=== PATIENT | male | born 1955 | race Caucasian/White ===

== ENCOUNTER 2021-01-25 09:18 | Inpatient (IN) | payer OTHER, SELFPAY ==
[2021-01-25] VITALS (27 sets, daily range): BP systolic 101–131; BP diastolic 58–97; PULSE 75–118; RESP 18–37; TEMP 37.2; O2SAT 90–100; BMI 29.1
--- NOTE | 2021-01-25 10:11 | ECG_ITS ---
[facility] Test Date: 2021-01-25 Pat Name: Lit Matamoros Department: Room: Gender: Male Executive Vp: : 1955 Requested By: Nahid Choudhury Order Number: [id number] Reading MD: PAPA YUEN Measurements Intervals [place] Rate: 89 P: ID: QRS: -58 QRSD: 91 T: 78 QT: 324 QTc: 394 Interpretive Statements ATRIAL FIBRILLATION WITH ABERRANT CONDUCTION OR VENTRICULAR PREMATURE COMPLEXES LEFT ANTERIOR FASCICULAR BLOCK [QRS AXIS <= -45, QR IN I, RS IN II] MODERATE ST DEPRESSION [0.05+ mV ST DEPRESSION] No previous ECG available for comparison Electronically Signed On 01-25-2021 23:34:40 CDT by PAPA YUEN [id number]
--- NOTE | 2021-01-25 10:11 | XR_ITS ---
WS: [id number] Portable AP upright chest, 01/25/2021 Clinical Data: dyspnea/cough Comparison: PA and lateral chest, 10/09/2007. Findings: There are moderate peripheral bilateral pulmonary opacities which can represent pneumonia. The heart is enlarged. The aortic arch shows calcification and tortuosity. No nodules, masses or effu sions are seen. Monitor leads are on the chest wall. XR/XR chest 1V portable [id number] Impression: 1. Moderate peripheral bilateral pulmonary opacities. 2. Cardiomegaly and atherosclerosis.
[2021-01-25 10:23] LABS: Basophils # 0.1 10^3/uL (0.0-0.1); Basophils % 0.7 %; Eosinophils % 0.1 %; Hematocrit 38.8 % (42.0-52.0); Lymphocytes # 1.3 10^3/uL (0.8-4.8); Lymphocytes % 8.9 %; Mean Corpuscular HGB Conc 30.9 g/dL (30.0-36.0); Mean Corpuscular Hemoglobin 32.7 pg (28.0-34.0); Mean Corpuscular Volume 105.7 fL (80-94); Mean Platelet Volume 10.3 fL (7.4-10.4); Monocytes # 1.7 10^3/uL (0.2-0.9); Monocytes % 11.9 %; Neutrophils # 10.57 10^3/uL (1.8-7.7); Neutrophils % 75.1 %; Nucleated Red Blood Cells % 0.1 %; Platelet Count 280 10^3/cmm (130-400); Red Blood Count 3.67 10^6/uL (4.1-5.3); Red Cell Distribution Width 15.7 % (12.1-15.1); White Blood Count 14.1 10^3/uL (4.0-10.0)
--- NOTE | 2021-01-25 10:24 | ED_ITS ---
HPI - SOB/Dyspnea General: Chief Complaint: Shortness of Breath/Dyspnea Stated Complaint: Sob, upset stomach, N, coughing Time Seen by Provider: 01/25/21 10:00 History of Present Illness: HPI Narrative: 55-year-old male presents emergency room complaining of increasing shortness of breath malaise and fatigue last several days. Patient has a history of congestive heart failure. MD elicited complaint: shortness of breath and cough Pertinent past history: congestive heart failure Onset (ago): day(s) Timing: constant Severity: severe Exacerbating factors: lying flat and exertion Relieving factors: oxygen and rest Known history of: congestive heart failure Associated symptoms: Reports chest congestion, cough and orthopnea; Deny abdominal pain, chest pain, diaphoresis, dizziness, extremity pain, fever(s), hemoptysis, lightheadedness, myalgias, nausea, palpitations, paresthesias, polydipsia, polyuria, rash, sense of impending doom, syncope or vomiting Treatment prior to arrival: diuretics Review of Systems Const: Denies: fever(s) or diaphoresis ENMT: Denies: throat pain, ear or mastoid pain, nasal discharge or nasal congestion Card: Reports: orthopnea; Denies: chest pain, palpitations, lightheadedness or syncope Resp: Reports: chest congestion; Denies: hemoptysis GI: Denies: abdominal pain, nausea or vomiting : Denies: flank pain, dysuria, urinary frequency or urinary urgency Musc: Denies: extremity pain Skin/Breast: Denies: rash or pruritus Neuro: Denies: dizziness Endo: Denies: polyuria or polydipsia PFS ED PFSH: Medical History (Updated 01/27/21 @ 10:15 by Nahid Hutton DO) Abdominal aortic aneurysm Essential (primary) hypertension Rheumatoid arthritis Family History Sister Cancer Father Diabetes Heart disease Social History Smoking and tobacco status: former smoker Alcohol intake: former Adopted: No Marital status: Number of children: 2 service: No History of recent travel: No Physical Exam Const: COMMON NORMALS: no acute distress GENERAL APPEARANCE: cooperative and comfortable ORIENTATION/CONSCIOUSNESS: Yes awake, Yes oriented to person, Yes oriented to place and Yes oriented to time HENMT: COMMON NORMALS: normocephalic, atraumatic and hearing grossly normal bilaterally HEAD & SCALP: normocephalic and atraumatic Resp: AUSCULTATION: crackles and rhonchi Cardio: RATE: tachycardic RHYTHM: abnormal rhythm irregularly irregular GI: COMMON NORMALS: Soft to palpation and No hepatosplenomegaly present AUSCULTATION: Yes normoactive bowel sounds PALPATION: Yes Soft to palpation, No Tenderness to palpation present (GI), No Guarding due to palpation present (GI) and Yes No hepatosplenomegaly present Extremity: COMMON NORMALS: normal to inspection, capillary refill normal, no clubbing, cyanosis or edema, no calf tenderness and no pedal edema Neuro: SENSORIUM/ORIENTATION: Yes oriented to person, Yes oriented to place and Yes oriented to time Skin: COMMON NORMALS: no rashes or lesions noted GENERAL SKIN EXAM: no rashes or lesions noted Course Vital Signs: Vital signs: Vital Signs Temperature 97.9 F 01/27/21 07:53 Pulse Rate 83 01/27/21 08:18 Respiratory Rate 16 01/27/21 08:18 Blood Pressure 115/85 01/27/21 07:53 Pulse Oximetry 95 01/27/21 08:18 MDM - SOB/Dyspnea MDM Narrative: Medical decision making narrative: Patient has bilateral pneumonias with decompensated heart failure A. fib which is in relatively good control at this point start on antibiotics discussed findings with the patient reviewed with hospitalist orders written Lab Data: Labs: Lab Results 01/25/21 01/25/21 01/25/21 Range/Units 10:08 10:08 10:08 WBC 14.1 H (4.0-10.0) 10^3/ uL RBC 3.67 L (4.1-5.3) 10^6/u L Hgb 12.0 (11.7-16.6) g/dL Hct 38.8 L (42.0-52.0) % MCV 105.7 H (80-94) fL MCH 32.7 (28.0-34.0) pg MCHC 30.9 (30.0-36.0) g/dL RDW 15.7 H (12.1-15.1) % Plt Count 280 (130-400) 10^3/c mm MPV 10.3 (7.4-10.4) fL Neut % (Auto) 75.1 % Lymph % (Auto) 8.9 % Mellette % (Auto) 11.9 % Eos % (Auto) 0.1 % Baso % (Auto) 0.7 % Neut # (Auto) 10.57 H (1.8-7.7) 10^3/u L Lymph # (Auto) 1.3 (0.8-4.8) 10^3/u L Mellette # (Auto) 1.7 H (0.2-0.9) 10^3/u L Eos # (Auto) 0.0 (0.0-0.8) 10^3/u L Baso # (Auto) 0.1 (0.0-0.1) 10^3/u L Nucleated RBC % (a uto) 0.1 % Nucleated RBCs # 0.0 /100WBC Sodium 140 (136-145) mmol/L Potassium 3.9 (3.5-5.1) mmol/L Chloride 100 (98-107) mmol/L Carbon Dioxide 27 (22-29) mmol/L Anion Gap 16.9 (5-19) BUN 25 H (8-23) mg/dL Creatinine 1.3 H (0.7-1.2) mg/dL GFR Calculation 55.8 L (90-130) mL/min Glucose 102 (65-115) mg/dL Calculated Osmolal ity 295 (285-295) mOsm/k g Lactic Acid 1.6 (0.5-2.2) mmol/L Calcium 9.2 (8.5-10.5) mg/dL Total Bilirubin 0.6 (0.15-1.2) mg/dL AST 11 (0-40) U/L ALT 13 (0-41) U/L Alkaline Phosphata se 88 (40-130) IU/L Creatine Kinase 39 (39-308) U/L Troponin T Baselin e (0-15) ng/L Troponin T 120 Min jp (0-15) ng/L Delta Troponin T (0-10) ABS# NT-Pro-B Natriuret Pep 3309 H (0-125) pg/mL Total Protein 6.5 L (6.6-8.7) g/dL Albumin 4.0 (3.5-5.2) g/dL Globulin 2.5 (1.3-4.6) g/dL Urine Color (Yellow) Urine Appearance (CLEAR) Urine pH (5-7) Ur Specific Gravit y (1.005-1.030) Urine Protein (Negative) Urine Glucose (UA) (Normal) Urine Ketones (Negative) Urine Blood (Negative) Urine Nitrate (Negative) Urine Bilirubin (Negative) Urine Urobilinogen (Negative) mg/dL Ur Leukocyte Tiki ase (Negative) Nasal/Oral COVID-1 9 PCR SARS-CoV-2 Ag (Rap id) (Negative) 01/25/21 01/25/21 01/25/21 Range/Units 10:08 11:08 11:20 WBC (4.0-10.0) 10^3/ uL RBC (4.1-5.3) 10^6/u L Hgb (11.7-16.6) g/dL Hct (42.0-52.0) % MCV (80-94) fL MCH (28.0-34.0) pg MCHC (30.0-36.0) g/dL RDW (12.1-15.1) % Plt Count (130-400) 10^3/c mm MPV (7.4-10.4) fL Neut % (Auto) % Lymph % (Auto) % Mellette % (Auto) % Eos % (Auto) % Baso % (Auto) % Neut # (Auto) (1.8-7.7) 10^3/u L Lymph # (Auto) (0.8-4.8) 10^3/u L Mellette # (Auto) (0.2-0.9) 10^3/u L Eos # (Auto) (0.0-0.8) 10^3/u L Baso # (Auto) (0.0-0.1) 10^3/u L Nucleated RBC % (a uto) % Nucleated RBCs # /100WBC Sodium (136-145) mmol/L Potassium (3.5-5.1) mmol/L Chloride (98-107) mmol/L Carbon Dioxide (22-29) mmol/L Anion Gap (5-19) BUN (8-23) mg/dL Creatinine (0.7-1.2) mg/dL GFR Calculation (90-130) mL/min Glucose (65-115) mg/dL Calculated Osmolal ity (285-295) mOsm/k g Lactic Acid (0.5-2.2) mmol/L Calcium (8.5-10.5) mg/dL Total Bilirubin (0.15-1.2) mg/dL AST (0-40) U/L ALT (0-41) U/L Alkaline Phosphata se (40-130) IU/L Creatine Kinase (39-308) U/L Troponin T Baselin e 74 H (0-15) ng/L Troponin T 120 Min jp (0-15) ng/L Delta Troponin T (0-10) ABS# NT-Pro-B Natriuret Pep (0-125) pg/mL Total Protein (6.6-8.7) g/dL Albumin (3.5-5.2) g/dL Globulin (1.3-4.6) g/dL Urine Color Straw (Yellow) Urine Appearance Clear (CLEAR) Urine pH 5 (5-7) Ur Specific Gravit y 1.010 (1.005-1.030) Urine Protein Neg (Negative) Urine Glucose (UA) Norm (Normal) Urine Ketones Negative (Negative) Urine Blood Neg (Negative) Urine Nitrate Negative (Negative) Urine Bilirubin Neg (Negative) Urine Urobilinogen Norm (Negative) mg/dL Ur Leukocyte Tiki ase Negative (Negative) Nasal/Oral COVID-1 9 PCR Not detected SARS-CoV-2 Ag (Rap id) (Negative) 01/25/21 01/25/21 Range/Units 11:20 12:33 WBC (4.0-10.0) 10^3/ uL RBC (4.1-5.3) 10^6/u L Hgb (11.7-16.6) g/dL Hct (42.0-52.0) % MCV (80-94) fL MCH (28.0-34.0) pg MCHC (30.0-36.0) g/dL RDW (12.1-15.1) % Plt Count (130-400) 10^3/c mm MPV (7.4-10.4) fL Neut % (Auto) % Lymph % (Auto) % Mellette % (Auto) % Eos % (Auto) % Baso % (Auto) % Neut # (Auto) (1.8-7.7) 10^3/u L Lymph # (Auto) (0.8-4.8) 10^3/u L Mellette # (Auto) (0.2-0.9) 10^3/u L Eos # (Auto) (0.0-0.8) 10^3/u L Baso # (Auto) (0.0-0.1) 10^3/u L Nucleated RBC % (a uto) % Nucleated RBCs # /100WBC Sodium (136-145) mmol/L Potassium (3.5-5.1) mmol/L Chloride (98-107) mmol/L Carbon Dioxide (22-29) mmol/L Anion Gap (5-19) BUN (8-23) mg/dL Creatinine (0.7-1.2) mg/dL GFR Calculation (90-130) mL/min Glucose (65-115) mg/dL Calculated Osmolal ity (285-295) mOsm/k g Lactic Acid (0.5-2.2) mmol/L Calcium (8.5-10.5) mg/dL Total Bilirubin (0.15-1.2) mg/dL AST (0-40) U/L ALT (0-41) U/L Alkaline Phosphata se (40-130) IU/L Creatine Kinase (39-308) U/L Troponin T Baselin e (0-15) ng/L Troponin T 120 Min jp 70.31 H (0-15) ng/L Delta Troponin T -3.69 L (0-10) ABS# NT-Pro-B Natriuret Pep (0-125) pg/mL Total Protein (6.6-8.7) g/dL Albumin (3.5-5.2) g/dL Globulin (1.3-4.6) g/dL Urine Color (Yellow) Urine Appearance (CLEAR) Urine pH (5-7) Ur Specific Gravit y (1.005-1.030) Urine Protein (Negative) Urine Glucose (UA) (Normal) Urine Ketones (Negative) Urine Blood (Negative) Urine Nitrate (Negative) Urine Bilirubin (Negative) Urine Urobilinogen (Negative) mg/dL Ur Leukocyte Tiki ase (Negative) Nasal/Oral COVID-1 9 PCR SARS-CoV-2 Ag (Rap id) Negative (Negative) Discharge Plan Discharge Patient Disposition: Admitted As Inpatient Admit Provider: Reid Cline Clinical Impression: Pneumonia, Decompensated heart failure, Atrial fibrillation, Essential hypertension, Acute kidney injury superimposed on CKD, Abdominal aortic aneurysm Condition: Stable Coding Level of Care Code ED Program Scheduler for Chg Fwd Exam Comprehensive
[2021-01-25 10:33] LABS: Lactic Sepsis W/Reflex 1.6 mmol/L (0.5-2.2)
[2021-01-25 10:44] LABS: Troponin(5th) Baseline 74 ng/L (0-15)
[2021-01-25 10:48] LABS: Alanine Aminotransferase 13 U/L (0-41); Alkaline Phosphatase 88 IU/L (40-130); Anion Gap 16.9 (5-19); Aspartate Amino Transferase 11 U/L (0-40); Blood Urea Nitrogen 25 mg/dL (8-23); Calcium 9.2 mg/dL (8.5-10.5); Carbon Dioxide 27 mmol/L (22-29); Chloride 100 mmol/L (98-107); Creatine Phosphokinase 39 U/L (39-308); Globulin 2.5 g/dL (1.3-4.6); Glomerular Filtration Rate 55.8 mL/min (90-130); Glucose 102 mg/dL (65-115); NT Pro B Type Natriuretic Pept 3309 pg/mL (0-125); Osmolality Calculated 295 mOsm/kg (285-295); Potassium 3.9 mmol/L (3.5-5.1); Sodium 140 mmol/L (136-145); Total Bilirubin 0.6 mg/dL (0.15-1.2); Total Protein 6.5 g/dL (6.6-8.7)
[2021-01-25 11:17] LABS: Add Urine Microscopic? NO; Charge for UA Resulting for Rev
[2021-01-25 11:21] LABS: Bilirubin Urine Neg (Negative); Blood Urine Neg (Negative); Glucose Urine UA Norm (Normal); Ketones Urine Negative (Negative); Leukocyte Esterase Urine Negative (Negative); Nitrate Urine Negative (Negative); Protein Urine Neg (Negative); Urine Appearance Clear (CLEAR); Urine Color Straw (Yellow); Urobilinogen Urine Norm (Negative); pH Urine 5 (5-7)
--- NOTE | 2021-01-25 12:00 | CT_ITS ---
WS: [id number] CT ABDOMEN PELVIS TECHNIQUE: Contrast-enhanced CT of the abdomen and pelvis with coronal and sagittal reformatted image s. CLINICAL INFORMATION: abd pain COMPARISON: None. DLP: 1657.[address] scans at [facility] use at least one of these dose optimization techniques: automat ed exposure control; mA and/or kV adjustment per patient size (includes targeted exams where dose is matched to clinical indication); or iterative reconstruction. FINDINGS: Infrarenal abdominal aortic aneurysm measuring 5.2 x 6.3 x 7.1 cm with surrounding mural thrombus. To rtuous infrarenal abdominal aorta. Moderate calcification. Mild diffuse fatty infiltration liver. Tiny hepatic cyst. Patchy infiltrates in the lung bases. Chron ic right lower rib fractures. Fatty atrophy of the pancreas. Normal spleen. Normal GE junction. Air-f luid level in the stomach. Adrenal glands are normal. No hydronephrosis. Bilateral renal cortical atr ophy. Tiny 6 mm low-attenuation lesion in the upper pole right kidney likely renal cyst but too small for definitive characterization. Normal portal vein and splenic vein. Argueta catheter. Left inguinal hernia containing a loop of sigmoid colon. No evidence of obstruction. No evidence of high-grade small or large bowel obstruction. Incidental fat-containing umbilical herni a. No free fluid in the pelvis. Moderate spondylitic changes lumbar spine. Chronic appearing compress ion superior endplate T12. CT/CT abdomen pelvis w con* [id number] IMPRESSION: 1. Infrarenal abdominal aortic aneurysm measuring 5.2 x 6.3 x 7.1 cm with surr ounding mural thrombus. Tortuous infrarenal abdominal aorta. 2. Left inguinal hernia containing a loop of sigmoid colon. No evidence of str angulation or ischemia. 3. No evidence of small or large bowel obstruction. 4. Diffuse fatty infiltration liver. 5. Patchy infiltrates in the lung bases. Recommend correlation for COVID 19 pn eumonia. 6. Argueta catheter. Notified Nahid Hutton DO at 01/25/2021 1:39 PM.
[2021-01-25 12:09] LABS: SARS Covid-2 Antigen Negative (Negative)
[2021-01-25] MEDS: FUROsemide 10 mg/mL SDV 10mL 60 MG IVP (12:10)
--- NOTE | 2021-01-25 12:11 | ECG_ITS ---
[facility] ED Test Date: 2021-01-25 Pat Name: Lit Matamoros Department: Room: Gender: Male Flat Ironer: : 1955 Requested By: Nahid Choudhury Order Number: [id number] Juliette MD: Marion Mathews M.D. Measurements Intervals [place] Rate: 101 P: LA: QRS: 241 QRSD: 105 T: 115 QT: 337 QTc: 439 Interpretive Statements ATRIAL FIBRILLATION WITH RAPID VENTRICULAR RESPONSE WITH ABERRANT CONDUCTION OR VENTRICULAR PREMATURE COMPLEXES INCOMPLETE RIGHT BUNDLE BRANCH BLOCK RIGHT VENTRICULAR HYPERTROPHY MODERATE ST DEPRESSION Compared to ECG 01/25/2021 10:00:44 Incomplete right bundle-branch block now present Atrial abnormality now present Right ventricular hypertrophy now present Left anterior fascicular block no longer present ST (T wave) deviation still present Electronically Signed On 01-28-2021 12:41:30 CDT by Marion Mathews M.D. [id number]
[2021-01-25 12:58] LABS: Troponin 5 2HR 70.31 ng/L (0-15); Troponin 5 2HR Delta -3.69 ABS# (0-10)
[2021-01-25] MEDS: iodixanol 320 mg/mL 100mL Btl IV (13:25)
--- NOTE | 2021-01-25 14:56 | PM.HP ---
Providers/Chief Complaint Primary Care Provider: Andrew Webster MD Chief Complaint: Sob, upset stomach, N, coughing History of Present Illness Lit Matamoros is a 65 year old male with past medical history of hypertension , rheumatoid arthritis, came in with chief complaint of worsening shortness of breath as well as cough, he is experiencing worsening shortness of breath for the last couple of months, but in the last 3 days shortness of breath has been worst, along with shortness of breath he is also complaining of none productive cough, shortness of breath is worse with minimal exertion, denies any PND and orthopnea, denies any chest pain, fever, sick contact, abdominal pain , nausea , vomiting. Upon arrival in the ER he was worked up for above mentioned complaint. Imaging studies: XR chest : Moderate peripheral bilateral pulmonary opacities. CT abdomen and pelvis: EKG: A. fib, with rate of 100 Pertinent labs: WBC:14.1, H&H:12/38.8, platelet count:280, serum sodium:140, serum potassium:3.9, BUN / serum creatinine: 25/1.3 Troponin T baseline: 74, 2-hour troponin T: 70.31, 2-hour delta:-3.69, proBNP:3309 Urinalysis: Clean Rapid Covid antigen negative, Covid PCR pending: Review of Systems Resp: Denies: pain on inspiration GI: Denies: abdominal pain, nausea, vomiting, diarrhea or constipation : Denies: flank pain or difficulty urinating Musc: Denies: back pain or extremity pain Neuro: Denies: headache(s), difficulty walking or confusion Medications/Allergies Home Medications Medication Instructions Recorded Confirmed Last Taken Type aspirin 81 mg chewable tablet 81 mg PO DAILY 01/11/21 01/25/21 01/24/21 History bumetanide 1 mg tablet 1 mg PO DAILY #90 tab 01/11/21 01/25/21 01/25/21 Rx carvedilol 25 mg tablet 25 mg PO BID #180 tab 01/11/21 01/25/21 01/25/21 Rx fluticasone fur. 100 mcg-umeclid 1 inh INHALATION DAILY 01/11/21 01/25/21 01/24/21 History 62.5 mcg-vilant 25 mcg inhalat.powder losartan 50 mg tablet 50 mg PO DAILY 01/11/21 01/25/2101/25/21 History prednisone 5 mg tablet 5 mg PO BID 01/11/21 01/25/21 01/25/21 History spironolactone 100 mg tablet 100 mg PO DAILY #90 tab 01/11/21 01/25/21 01/25/21 Rx oxycodone-acetaminophen 1 tab PO Q4H PRN 01/25/21 01/25/21 01/25/21 History Allergies Allergy/AdvReac Type Severity Reaction Status Date / Time etanercept [From Enbrel] Allergy Severe flu Verified 01/11/21 15:42 symptoms hydralazine Allergy Severe muscle pain Verified 01/11/21 15:39 hydrochlorothiazide Allergy Severe dried him Verified 01/11/21 15:38 out lisinopril Allergy Severe leg pain Verified 01/11/21 15:41 simvastatin Allergy Severe muscle pain Verified 01/11/21 15:39 sulfasalazine Allergy Severe rash Verified 01/11/21 15:40 [From Sulfazine] PFSH Acute PFSH: Medical History (Updated 01/25/21 @ 15:06 by Reid Cline MD) Abdominal aortic aneurysm Essential (primary) hypertension Rheumatoid arthritis Family History Sister Cancer Father Diabetes Heart disease Social History Smoking and tobacco status: former smoker Alcohol intake: former Adopted: No Marital status: Number of children: 2 service: No History of recent travel: No Vitals/I&O/Wt Last Vital Signs Temp 98.9 F 01/25/21 09:55 Pulse 118 H 01/25/21 13:45 Resp 18 01/25/21 13:45 BP 107/86 01/25/21 13:45 Pulse Ox 95 01/25/21 13:45 Weight last 48 hrs Weight 97.522 kg Physical Exam Const: COMMON NORMALS: patient oriented x3 HENMT: COMMON NORMALS: normocephalic and atraumatic HEAD & SCALP: normocephalic and atraumatic Chest: CHEST: Yes Symmetrical chest wall rise Resp: OTHER: Decreased air entry bilaterally,Bilateral basal crypts Cardio: COMMON NORMALS: regular rate, regular rhythm, S1 normal heart sound present, S2 normal heart sound present, No gallops present (Cardio), No murmurs present (Cardio), No rub (Cardio) and Peripheral pulses 2+ throughout RATE: regular rate RHYTHM: regular rhythm HEART SOUNDS: S1 normal heart sound present and S2 normal heart sound present PERIPHERAL PULSES: Peripheral pulses 2+ throughout GI: COMMON NORMALS: Normal to inspection, nondistended, normoactive bowel sounds present, Soft to palpation, non-tender, No hepatosplenomegaly present and no masses AUSCULTATION: Yes normoactive bowel sounds PALPATION: Yes Soft to palpation and Yes No hepatosplenomegaly present RECTAL EXAM: Yes deferred Extremity: NARRATIVE EXTREMITY EXAM: 1+ bilateral pitting edema present in both lower extremity Neuro: COMMON NORMALS: patient oriented x3 Urinary Catheter Management^: Argueta: Cath Placed During This Visit: yes Urinary Catheter Date of Insertion: 01/25/21 Urinary Catheter Time of Insertion: 12:10 Data : 01/25/21 10:08 01/25/21 10:08 A&P Assessment and plan (1) Decompensated heart failure: Decompensated heart failure: 2D echo: Intake output charting Daily weight k>4, magnesium greater than 2 Bumex 1 mg IV daily Cardiology consult Status: Acute (2) Pneumonia: Patient is complaining of worsening shortness of breath, cough, x-ray chest is showing bilateral infiltrates. Follow blood culture Procalcitonin Urine Legionella antigen Bacterial antigen panel Covid PCR Continue ceftriaxone and azithromycin Status: Acute (3) Atrial fibrillation: New onset A. fib [id number] of 2 TSH Carvedilol 12.5 mg every 12 daily Eliquis 5 mg every 12 daily Status: Acute (4) Acute kidney injury superimposed on CKD: SHANTELLE on CKD stage III: Likely secondary to cardiorenal syndrome: In the presence of decompensated heart failure Monitor BMP Intake output charting Avoid nephrotoxic's Status: Acute (5) Leukocytosis: Likely secondary to steroid use for RA Follow blood culture Follow-up procalcitonin Antibiotics as above Status: Acute (6) Abdominal aortic aneurysm: 6.6 centimeters non leaking abdominal aneurysm. Outpatient CTVS follow-up Status: Acute (7) Essential hypertension: Currently blood pressure is well controlled Status: Acute (8) Rheumatoid arthritis: Status: Acute Additional A&P Information CODE STATUS: Full code DVT prophylaxis: On Lovenox Attestations Medical Necessity Statement*: patient needs to be in hospital for the management of pneumonia, heart failure, atrial fibrillation. Anticipated length of stay greater than 2 midnights Coding Level of Care Code Acute Surgical Services Tech for g Fwd Diagnoses Decompensated heart failure I50.9 Pneumonia J18.9 Atrial fibrillation I48.91 Acute kidney injury superimposed on CKD N17.9; N18.9 Leukocytosis D72.829 Abdominal aortic aneurysm I71.4 Essential hypertension I10 Rheumatoid arthritis M06.9
[2021-01-25] MEDS: enoxaparin 40 mg/0.4 mL Syringe SUBCUT (15:13)
[2021-01-25] MEDS: cefTRIAXone 1,000 MG in sodium chloride 0.9% (plus) 50 ML 100 MG IV (15:13)
[2021-01-25] MEDS: azithromycin 500 MG in sodium chloride 0.9% 250 ML 250 MG IV (15:39)
--- NOTE | 2021-01-25 16:11 | ECG_ITS ---
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: : 1955 Requested By: Nahid Choudhury Order Number: [id number] Reading MD: PAPA YUEN Measurements Intervals [place] Rate: 90 P: 151 PA: 169 QRS: 236 QRSD: 92 T: 126 QT: 351 QTc: 431 Interpretive Statements SINUS RHYTHM WITH FREQUENT SUPRAVENTRICULAR PREMATURE COMPLEXES ARM LEADS REVERSED [INVERTED P AND QRS IN I] ABNORMAL RHYTHM ECG Compared to ECG 01/25/2021 13:52:09 Atrial fibrillation no longer present Ventricular premature complex(es) no longer present Aberrant conduction of supraventricular beat(s) no longer present Incomplete right bundle-branch block no longer present Atrial abnormality no longer present Right ventricular hypertrophy no longer present ST (T wave) deviation no longer present Electronically Signed On 01-25-2021 23:36:43 CDT by PAPA YUEN [id number]
[2021-01-25 16:32] LABS: Troponin 5 6HR 68.41 ng/L (0-15)
[2021-01-25 16:48] LABS: Troponin 5 6HR Delta -5.59 ng/L (0-12)
[2021-01-25] MEDS: carvedilol 25 mg Tablet 12.5 MG PO (19:38)
[2021-01-25] MEDS: apixaban 5 mg Tablet PO (19:39)
--- NOTE | 2021-01-25 20:28 | PC.NURSE ---
Addendum entered by Breanna Sapp RN 01/25/21 20:29: A-Fib with PVCs on monitor, matching most recent EKG. Original Note: Patient states that he still feels short of breath, but that he feels much better than he did earlier. Oxygen saturation 98 percent on 2 L NC. Heart rate A-fib 90s. Patient is alert and oriented. Will monitor.
--- NOTE | 2021-01-25 21:35 | PC.NURSE ---
Patient RR 26-27. Patient states he feels short of breath. Oxygen saturation 98 percent on [address] Holden notified. 2 mg Morphine ordered x1 for air hunger.
[2021-01-25] MEDS: morphine 4 mg/mL SDV 1 mL 2 MG IVP (21:53)
--- NOTE | 2021-01-25 22:06 | PC.NURSE ---
Patient states okay to give any information to , Linda.
--- NOTE | 2021-01-25 22:08 | PC.NURSE ---
Dr. Holden notified of patient stating that he does not feel that the Morphine helped. Patient is still c/o shortness of breaht. Oxygen saturation still 98 percent on 2 L NC, however respiratory rate in the 30s. Ordered Bipap. RT notified.
[2021-01-26] VITALS (16 sets, daily range): BP systolic 107–125; BP diastolic 79–93; PULSE 71–106; RESP 16–31; TEMP 36.6–37.1; O2SAT 91–97
--- NOTE | 2021-01-26 00:49 | PC.NURSE ---
Dr. Holden notified of patient still stating that he feels short of breath. Patient states that he feels the Bipap helped a little bit. 2 mg Morphine x1 ordered.
[2021-01-26] MEDS: morphine 4 mg/mL SDV 1 mL 2 MG IVP (00:53)
--- NOTE | 2021-01-26 01:30 | PC.NURSE ---
Patient is currently resting with eyes closed. Bipap is on. Will monitor.
[2021-01-26 04:26] LABS: Basophils # 0.1 10^3/uL (0.0-0.1); Basophils % 0.7 %; Eosinophils % 0.4 %; Hematocrit 35.5 % (42.0-52.0); Hemoglobin 10.8 g/dL (11.7-16.6); Lymphocytes # 1.4 10^3/uL (0.8-4.8); Lymphocytes % 12.7 %; Mean Corpuscular HGB Conc 30.4 g/dL (30.0-36.0); Mean Corpuscular Hemoglobin 32.1 pg (28.0-34.0); Mean Corpuscular Volume 105.7 fL (80-94); Mean Platelet Volume 10.7 fL (7.4-10.4); Monocytes # 1.5 10^3/uL (0.2-0.9); Monocytes % 14.4 %; Neutrophils # 7.19 10^3/uL (1.8-7.7); Neutrophils % 67.9 %; Nucleated Red Blood Cells % 0 %; Platelet Count 244 10^3/cmm (130-400); Red Blood Count 3.36 10^6/uL (4.1-5.3); Red Cell Distribution Width 15.8 % (12.1-15.1); White Blood Count 10.6 10^3/uL (4.0-10.0)
[2021-01-26 04:46] LABS: Magnesium 1.7 mg/dL (1.7-2.3); Phosphorus 3.7 mg/dL (2.5-4.5)
[2021-01-26 04:52] LABS: Estmated Average Glucose 108; Hemoglobin A1C 5.4 % (4.0-6.0)
[2021-01-26 05:07] LABS: NT Pro B Type Natriuretic Pept 1765 pg/mL (0-125); Thyroid Stimulating Hormone 1.06 uIU/mL (0.27-4.20)
--- NOTE | 2021-01-26 05:16 | PC.NURSE ---
Earlier patient had got up to bedside commode with one assist and did not have a bowel movement. Patient had incontinent episode of loose stool. Patient's heart rate went up to 144 A-fib with RVR. This only lasted a few seconds. By the time nurse got into the room, heart rate was back in the 90s A-fib and patient stated that he felt fine. Patient states that his shortness of breath feels better this morning. Oxygen saturation currently 90s on Bipap. Patient is alert and oriented x4. RR 22. Will monitor.
[2021-01-26 05:19] LABS: Alanine Aminotransferase 9 U/L (0-41); Albumin Level 3.4 g/dL (3.5-5.2); Alkaline Phosphatase 68 IU/L (40-130); Anion Gap 19.2 (5-19); Aspartate Amino Transferase 11 U/L (0-40); Blood Urea Nitrogen 28 mg/dL (8-23); Calcium 8.6 mg/dL (8.5-10.5); Carbon Dioxide 24 mmol/L (22-29); Chloride 100 mmol/L (98-107); Globulin 2.7 g/dL (1.3-4.6); Glomerular Filtration Rate 55.8 mL/min (90-130); Glucose 83 mg/dL (65-115); Osmolality Calculated 295 mOsm/kg (285-295); Potassium 3.2 mmol/L (3.5-5.1); Sodium 140 mmol/L (136-145); Total Bilirubin 0.7 mg/dL (0.15-1.2); Total Protein 6.1 g/dL (6.6-8.7)
[2021-01-26] MEDS: HYDROcodone-acetaminophen 5-325 mg Tablet 1 TAB PO ×2 (05:52→19:08)
--- NOTE | 2021-01-26 05:57 | PC.NURSE ---
Patient was assisted to bedside commode with one assist. Patient did not have a bowel movement. Patient was assisted back to bed with one assist. Patient tolerated well.
[2021-01-26 06:20] LABS: D Dimer 1.91 ug/mIFEU (0-0.59)
[2021-01-26] MEDS: cefTRIAXone 1,000 MG in sodium chloride 0.9% (plus) 50 ML 100 MG IV (08:57)
[2021-01-26] MEDS: aspirin 81 mg Chew Tablet PO (08:58)
[2021-01-26] MEDS: bumetanide 0.25 mg/mL SDV 4 mL 1 MG IV (08:58)
[2021-01-26] MEDS: carvedilol 25 mg Tablet 12.5 MG PO (08:58)
[2021-01-26] MEDS: potassium chloride oral liq 20 mEq/15 mL UDC PO (08:59)
[2021-01-26] MEDS: apixaban 5 mg Tablet PO ×2 (09:02→18:15)
--- NOTE | 2021-01-26 09:16 | USCV_ITS ---
Lit Matamoros Age: 65 Gender: M : 1955 Exam Date: 01/26/2021 16:30 Ordering Phys: Reid Cline MD Technologist: Helen Jackson [place] [facility] [place]: SOB, CHF BP: 107 / 89 HR: 103 Rhythm: Sinus Technical Quality: Technically difficult study MEASUREMENTS (Male / Female) Normal Values 2D ECHO LV Diastolic Diameter PLAX 5.3 cm 4.2 - 5.9 / 3.9 - 5.3 cm LV Systolic Diameter PLAX 2.8 cm IVS Diastolic Thickness 0.9 cm 0.6 - 1.0 / 0.6 - 0.9 cm IVS Systolic Thickness 2.5 cm LVPW Diastolic Thickness 1.1 cm 0.6 - 1.0 / 0.6 - 0.9 cm LVPW Systolic Thickness 1.3 cm LVOT Diameter 2.1 cm LV Ejection Fraction 2D Teich 78.8 % LV Ejection Fraction MOD 2C 69.7 % LV Ejection Fraction 2C AL 72.4 % LA Diameter 3.8 cm LA Width 4.1 cm LA Height 5.9 cm RA Width 3.5 cm RA Height 5.4 cm Aorta at Sinotubular Diameter 3.7 cm DOPPLER AV Peak Velocity 181.0 cm/s LVOT Peak Velocity 191.0 cm/s AV Area Cont Eq vti 4.7 cm squared AV Area Cont Eq pk 3.8 cm squared MV Peak Velocity 86.0 cm/s MV Area PHT 3.2 cm squared Mitral E to A Ratio 1.2 MV E' Velocity 88.0 cm/s TR Peak Velocity 280.0 cm/s TR Peak Gradient 31.4 mmHg Right Atrial Pressure 8.0 mmHg Pulmonary Artery Systolic Pressu 39.4 mmHg PV Peak Velocity 80.0 cm/s RV Acceleration Time 0.1 s RV Ejection Time 0.3 s RV AcT/ET 0.5 FINDINGS Left Ventricle Normal left ventricular cavity size. Normal left ventricular systolic function. Left ventricular ejection fraction is estimated at 55 -60 %. Although no diagnostic regional wall motion abnormality could be in fact, this possibility cannot be completely excluded based on the study. Diastolic function was not assessed. Right Ventricle Normal right ventricular size and systolic function. Right Atrium Normal right atrial size. Right atrial pressure estimated at 8 mmHg. Left Atrium Mildly increased left atrial size. Mitral Valve Structurally normal mitral valve. No mitral valve stenosis. No significant mitral valve regurgitation. Aortic Valve Aortic valve not well visualized. No aortic valve stenosis. No aortic valve regurgitation. Tricuspid Valve Structurally normal tricuspid valve. Trace tricuspid valve regurgitation. Pulmonic Valve Pulmonic valve not well visualized. Pericardium No pericardial effusion. Aorta Normal size aortic root and proximal ascending aorta. Dilated inferior vena cava with normal respiratory variation. CONCLUSIONS 1. This is a technically difficult study with poor windows. 2. Normal left ventricular cavity size. Normal left ventricular systolic function. Left ventricular ejection fraction is estimated at 55 -60 %. Although no diagnostic regional wall motion abnormality could be in fact, this possibility cannot be completely excluded based on the study. 3. No prior similar studies to compare. Marion Mathews MD (Electronically Signed) Final Date: 27 January 2021 10:08 S
--- NOTE | 2021-01-26 09:38 | P.PN_ITS ---
Subjective Subjective: Interval history: Patient was seen and examined this morning, continue to do well, shortness of breath is improved.Continues to remain afebrile. His other vitals and labs have been reviewed. Medications: Reviewed: Yes Vitals/I&O/Wt Last Vital Signs Temp 98.6 F 01/26/21 04:00 Pulse 106 H 01/26/21 04:23 Resp 31 H 01/26/21 04:00 BP 114/79 01/26/21 04:00 Pulse Ox 94 01/26/21 04:00 01/25/21 01/26/21 01/26/21 22:59 06:59 14:59 Intake Total 500 / 500 200 / 700 Output Total 1000 / 1000 Balance 500 / 500 -800 / -300 Weight last 48 hrs Weight 97.522 kg Physical Exam Const: COMMON NORMALS: patient oriented x3 HENMT: COMMON NORMALS: normocephalic and atraumatic HEAD & SCALP: normocephalic and atraumatic Chest: CHEST: Yes Symmetrical chest wall rise Resp: OTHER: Decreased air entry bilaterally,Bilateral basal crypts Cardio: COMMON NORMALS: regular rate, regular rhythm, S1 normal heart sound present, S2 normal heart sound present, No gallops present (Cardio), No murmurs present (Cardio), No rub (Cardio) and Peripheral pulses 2+ throughout RATE: regular rate RHYTHM: regular rhythm HEART SOUNDS: S1 normal heart sound present and S2 normal heart sound present PERIPHERAL PULSES: Peripheral pulses 2+ throughout GI: COMMON NORMALS: Normal to inspection, nondistended, normoactive bowel sounds present, Soft to palpation, non-tender, No hepatosplenomegaly present and no masses AUSCULTATION: Yes normoactive bowel sounds PALPATION: Yes Soft to palpation and Yes No hepatosplenomegaly present RECTAL EXAM: Yes deferred Extremity: NARRATIVE EXTREMITY EXAM: 1+ bilateral pitting edema present in both lower extremity Neuro: COMMON NORMALS: patient oriented x3 Urinary Catheter Management^: Argueta: Cath Placed During This Visit: yes Reason for Continuing Indwelling Catheter: Other Urinary Catheter Date of Insertion: 01/25/21 Urinary Catheter Time of Insertion: 12:10 Data : 01/26/21 03:33 01/26/21 03:33 Micro: Microbiology 01/25/21 16:00 Blood Culture - Preliminary Blood SPECIMEN COLLECTED 01/25/21 10:08 Blood Culture - Preliminary Blood SPECIMEN COLLECTED A&P Assessment and plan (1) Decompensated heart failure: Decompensated heart failure: 2D echo: Intake output charting Daily weight k>4, magnesium greater than 2 Bumex 1 mg IV daily Cardiology consult Status: Acute (2) Pneumonia: Patient is complaining of worsening shortness of breath, cough, x-ray chest is showing bilateral infiltrates. Blood culture:NTD Procalcitonin:0.20 Urine Legionella antigen: Bacterial antigen panel: Covid PCR:Negative Rapid Covid antigen negative ABG am : Continue ceftriaxone and azithromycin Status: Acute (3) Atrial fibrillation: New onset A. fib [id number] of 2 TSH: 1.06 Carvedilol 25 mg every 12 daily Eliquis 5 mg every 12 daily Status: Acute (4) Acute kidney injury superimposed on CKD: SHANTELLE on CKD stage III: Likely secondary to cardiorenal syndrome: In the presence of decompensated heart failure Monitor BMP Intake output charting Avoid nephrotoxic's Status: Acute (5) Leukocytosis: Likely secondary to steroid use for RA Follow blood culture Follow-up procalcitonin Antibiotics as above Status: Acute (6) Abdominal aortic aneurysm: 6.6 centimeters non leaking abdominal aneurysm. Outpatient CTVS follow-up Status: Acute (7) Essential hypertension: Currently blood pressure is well controlled Status: Acute (8) Rheumatoid arthritis: Status: Acute Additional A&P Information CODE STATUS: Full code DVT prophylaxis: On Lovenox Attestations Medical Necessity Statement*: Patient needs to be in the hospital for management of heart failure and pneumonia. Coding Level of Care Code Acute Train Conductor for [facility] Diagnoses Decompensated heart failure I50.9 Pneumonia J18.9 Atrial fibrillation I48.91 Acute kidney injury superimposed on CKD N17.9; N18.9 Leukocytosis D72.829 Abdominal aortic aneurysm I71.4 Essential hypertension I10 Rheumatoid arthritis M06.9
[2021-01-26] MEDS: lidocaine 1% 5 ML in potassium chloride premix 100 ML 50 ML IV (11:20)
[2021-01-26] MEDS: potassium chloride ER 20 mEq Tablet 40 MEQ PO (13:18)
[2021-01-26] MEDS: azithromycin 500 MG in sodium chloride 0.9% 250 ML 250 MG IV (14:43)
[2021-01-26 16:11] LABS: Coronavirus Test Green County Not Detected
[2021-01-26] MEDS: carvedilol 25 mg Tablet PO (18:15)
--- NOTE | 2021-01-26 19:11 | PC.NURSE ---
Shift Note Frequent safety and comfort rounds continue. Orders and/or nursing care completed as indicated. Patient monitored for response to intervention and treatment(s). Education provided includes[]. Patient and/or commissary representative[]. Will continue to monitor. Patient c/o pain 8/10 to generalized back, hip, legs. Medication provided as ordered.
--- NOTE | 2021-01-26 19:24 | PC.NURSE ---
Shift Note Frequent safety and comfort rounds continue. Orders and/or nursing care completed as indicated. Patient monitored for response to intervention and treatment(s). Education provided includes[antibiotics]. Patient and/or housing management representative[verb understanding]. Will continue to monitor.
[2021-01-26] MEDS: LORazepam 2 mg/mL INJ 1 mL 1 MG IVP (20:36)
[2021-01-26] MEDS: ipratropium-albuterol 3 mL Neb INHALATION (21:12)
[2021-01-27] VITALS (16 sets, daily range): BP systolic 100–128; BP diastolic 77–94; PULSE 76–93; RESP 16–36; TEMP 36.6–38.3; O2SAT 19–97
[2021-01-27] MEDS: ipratropium-albuterol 3 mL Neb INHALATION ×5 (00:02→22:33)
[2021-01-27 04:51] LABS: Basophils # 0.1 10^3/uL (0.0-0.1); Basophils % 0.6 %; Eosinophils # 0.1 10^3/uL (0.0-0.8); Eosinophils % 0.7 %; Hematocrit 35.4 % (42.0-52.0); Hemoglobin 10.8 g/dL (11.7-16.6); Lymphocytes # 1.6 10^3/uL (0.8-4.8); Lymphocytes % 14.5 %; Mean Corpuscular HGB Conc 30.5 g/dL (30.0-36.0); Mean Corpuscular Hemoglobin 32.4 pg (28.0-34.0); Mean Corpuscular Volume 106.3 fL (80-94); Mean Platelet Volume 10.6 fL (7.4-10.4); Monocytes # 1.3 10^3/uL (0.2-0.9); Neutrophils # 7.63 10^3/uL (1.8-7.7); Neutrophils % 68.9 %; Nucleated Red Blood Cells % 0 %; Platelet Count 235 10^3/cmm (130-400); Red Blood Count 3.33 10^6/uL (4.1-5.3); Red Cell Distribution Width 15.3 % (12.1-15.1); White Blood Count 11.1 10^3/uL (4.0-10.0)
[2021-01-27 05:21] LABS: Alanine Aminotransferase 12 U/L (0-41); Albumin Level 3.3 g/dL (3.5-5.2); Alkaline Phosphatase 66 IU/L (40-130); Anion Gap 16.1 (5-19); Aspartate Amino Transferase 13 U/L (0-40); Blood Urea Nitrogen 28 mg/dL (8-23); Calcium 8.5 mg/dL (8.5-10.5); Carbon Dioxide 24 mmol/L (22-29); Chloride 104 mmol/L (98-107); Creatinine Clr Calc Pharmacy 83.1919; Glomerular Filtration Rate 67.6 mL/min (90-130); Glucose 81 mg/dL (65-115); Osmolality Calculated 295 mOsm/kg (285-295); Potassium 4.1 mmol/L (3.5-5.1); Sodium 140 mmol/L (136-145); Total Bilirubin 0.6 mg/dL (0.15-1.2); Total Protein 6.3 g/dL (6.6-8.7)
[2021-01-27 05:45] LABS: ABG PCO2 40.2 mmHg (35-45); ABG PH Result 7.44 (7.35-7.45); Alveolar-Arterial Oxygen Gradi 4.5 mmHg (5-10); Arterial Blood Gas Hematocrit 34.8 % (42-52); Base Excess ABG 2.5 mmol/L (-2.0-2.0); Blood Gas Allen Test Pos; Blood Gas Sample Site Radial, left; Blood Gas Sample Type Arterial; Carboxyhemoglobin 1.9 %THgb (0.4-20.1); HCO3 ABG 26.9 mmol/L (22-26); Ionized Calcium Level - ABG 1.2 mmol/L (1.1-1.4); Methemoglobin 0.7 % (0.4-1.5); Oxygen Device NC; Oxygen Saturation ABG 94.4; PO2 ABG 65.7 mmHg (80.0-100.0); Potassium Level - ABG 4.1 mmol/L (3.5-5.0); Total Hemoglobin 11.4 g/dL (14-18)
[2021-01-27] MEDS: HYDROcodone-acetaminophen 5-325 mg Tablet 1 TAB PO ×3 (05:50→21:20)
--- NOTE | 2021-01-27 09:21 | PC.NUTR ---
Nutrition assessment triggered d/t MST score of 3. No po intake since admission per chart, pt and nurse confirmed poor appetite. Attempted to interview pt but pt appeared to have difficulty waking up. Recommend to encourage po intakes, wake pt for meals when appropriate, and provide preferences within diet guidelines. Recommend monitor weight, as well as chewing/swallowing ability given admission screen indicating wt loss and trouble chewing/swallowing. See full RD assessment for further details.
[2021-01-27] MEDS: cefTRIAXone 1,000 MG in sodium chloride 0.9% (plus) 50 ML 100 MG IV (09:51)
[2021-01-27] MEDS: potassium chloride oral liq 20 mEq/15 mL UDC PO (09:51)
[2021-01-27] MEDS: aspirin 81 mg Chew Tablet PO (09:52)
[2021-01-27] MEDS: bumetanide 0.25 mg/mL SDV 4 mL 1 MG IV (09:53)
[2021-01-27] MEDS: apixaban 5 mg Tablet PO ×2 (09:53→18:31)
[2021-01-27] MEDS: carvedilol 25 mg Tablet PO ×2 (09:53→18:31)
--- NOTE | 2021-01-27 12:12 | PM.PN ---
Subjective Subjective: Interval history: Patient was seen and examined this morning,he is having watery stool. Noted T max : 100.9.Currently requiring 4ls Oxygen through [place]. Medications: Reviewed: Yes Vitals/I&O/Wt Last Vital Signs Temp 97.9 F 01/27/21 07:53 Pulse 83 01/27/21 08:18 Resp 16 01/27/21 08:18 BP 115/85 01/27/21 07:53 Pulse Ox 95 01/27/21 08:18 01/26/21 01/27/21 01/27/21 22:59 06:59 14:59 Intake Total 405 / 525 300 / 825 120 / 120 Output Total 1000 / 1000 450 / 1450 Balance -595 / -475 -150 / -625 120 / 120 Physical Exam Const: COMMON NORMALS: patient oriented x3 HENMT: COMMON NORMALS: normocephalic and atraumatic HEAD & SCALP: normocephalic and atraumatic Chest: CHEST: Yes Symmetrical chest wall rise Resp: OTHER: Decreased air entry bilaterally,Bilateral basal crypts Cardio: COMMON NORMALS: regular rate, regular rhythm, S1 normal heart sound present, S2 normal heart sound present, No gallops present (Cardio), No murmurs present (Cardio), No rub (Cardio) and Peripheral pulses 2+ throughout RATE: regular rate RHYTHM: regular rhythm HEART SOUNDS: S1 normal heart sound present and S2 normal heart sound present PERIPHERAL PULSES: Peripheral pulses 2+ throughout GI: COMMON NORMALS: Normal to inspection, nondistended, normoactive bowel sounds present, Soft to palpation, non-tender, No hepatosplenomegaly present and no masses AUSCULTATION: Yes normoactive bowel sounds PALPATION: Yes Soft to palpation and Yes No hepatosplenomegaly present RECTAL EXAM: Yes deferred Extremity: NARRATIVE EXTREMITY EXAM: Trace B/L L/E Pitting edema. Neuro: COMMON NORMALS: patient oriented x3 Urinary Catheter Management^: Argueta: Cath Placed During This Visit: yes Reason for Continuing Indwelling Catheter: Accurate Measurement of Urinary Output in Critically Ill Patients Urinary Catheter Date of Insertion: 01/25/21 Urinary Catheter Time of Insertion: 12:10 Data : 01/27/21 04:29 01/27/21 04:29 Micro: Microbiology 01/25/21 16:00 Blood Culture - Preliminary Blood NEGATIVE TO DATE 01/25/21 10:08 Blood Culture - Preliminary Blood NEGATIVE TO DATE A&P Assessment and plan (1) Decompensated heart failure: Decompensated heart failure: 2D echo:Normal left ventricular cavity size. Normal left ventricular systolic function. Left ventricular ejection fraction is estimated at 55 -60 %.Although no diagnostic regional wall motion abnormality could be in fact, this possibility cannot be completely excluded based on the study.No gross valvular abnormality. Intake output charting Daily weight k>4, magnesium greater than 2 Bumex 1 mg IV daily Consider Cardiology consult Status: Acute (2) Pneumonia: Patient is complaining of worsening shortness of breath, cough, x-ray chest is showing bilateral infiltrates. Blood culture:NTD Procalcitonin:0.20 Urine Legionella antigen: Negative Bacterial antigen panel: Negative Covid PCR:Negative Rapid Covid antigen negative ABG am : Continue ceftriaxone and azithromycin Status: Acute (3) Atrial fibrillation: New onset A. fib [id number] of 2 TSH: 1.06 Carvedilol 25 mg every 12 daily Eliquis 5 mg every 12 daily Status: Acute (4) Acute kidney injury superimposed on CKD: SHANTELLE on CKD stage III: Likely secondary to cardiorenal syndrome: In the presence of decompensated heart failure Monitor BMP Intake output charting Avoid nephrotoxic's Status: Acute (5) Leukocytosis: Likely secondary to steroid use for RA Follow blood culture Follow-up procalcitonin Antibiotics as above Status: Acute (6) Abdominal aortic aneurysm: 6.6 centimeters non leaking abdominal aneurysm. Outpatient [facility]VS follow-up Status: Acute (7) Essential hypertension: Currently blood pressure is well controlled Status: Acute (8) Rheumatoid arthritis: On Prednisone 5 mg po BID Status: Acute Additional A&P Information CODE STATUS: Full code DVT prophylaxis: On Lovenox Attestations Medical Necessity Statement*: Patient needs to be in hospital for the management of PNA. Coding Level of Care Code Acute Client Experience Administrator for [facility] Fwd Exam Detailed Diagnoses Decompensated heart failure I50.9 Pneumonia J18.9 Atrial fibrillation I48.91 Acute kidney injury superimposed on CKD N17.9; N18.9 Leukocytosis D72.829 Abdominal aortic aneurysm I71.4 Essential hypertension I10 Rheumatoid arthritis M06.9
[2021-01-27] MEDS: azithromycin 500 MG in sodium chloride 0.9% 250 ML 250 MG IV (15:55)
--- NOTE | 2021-01-27 19:03 | PC.NURSE ---
Shift Note Received report from CHIDI Sampson. Patient resting in bed with eyes closed. Arouses easily. Denies needs presently. No distress observed. Frequent safety and comfort rounds continue. Orders and/or nursing care completed as indicated. Patient monitored for response to intervention and treatment(s). Education provided includes hydrocodone and ativan. Patient and/or truck sales representative verbalized understanding. Will continue to monitor.
--- NOTE | 2021-01-27 19:25 | PC.NURSE ---
Shift Note Frequent safety and comfort rounds continue. Orders and/or nursing care completed as indicated. Patient monitored for response to intervention and treatment(s). Education provided includes[bumex and coreg and antibiotics]. Patient and/or tour sales representative[verb understanding]. Will continue to monitor.
--- NOTE | 2021-01-27 20:57 | PC.NURSE ---
Patient resting with eyes closed. No distress observed presently.
[2021-01-27] MEDS: LORazepam 2 mg/mL INJ 1 mL 1 MG IVP (21:21)
[2021-01-28] VITALS (11 sets, daily range): BP systolic 117–126; BP diastolic 61–95; PULSE 82–108; RESP 16–32; TEMP 36.4–37; O2SAT 87–97
[2021-01-28] MEDS: ipratropium-albuterol 3 mL Neb INHALATION ×3 (04:16→12:37)
[2021-01-28 04:53] LABS: Basophils # 0.1 10^3/uL (0.0-0.1); Basophils % 0.7 %; Eosinophils # 0.1 10^3/uL (0.0-0.8); Eosinophils % 1.1 %; Hematocrit 35.6 % (42.0-52.0); Hemoglobin 10.8 g/dL (11.7-16.6); Lymphocytes # 1.9 10^3/uL (0.8-4.8); Mean Corpuscular HGB Conc 30.3 g/dL (30.0-36.0); Mean Corpuscular Hemoglobin 32.3 pg (28.0-34.0); Mean Corpuscular Volume 106.6 fL (80-94); Mean Platelet Volume 11.1 fL (7.4-10.4); Monocytes # 1.3 10^3/uL (0.2-0.9); Monocytes % 11.5 %; Neutrophils # 7.39 10^3/uL (1.8-7.7); Neutrophils % 66.6 %; Nucleated Red Blood Cells % 0 %; Platelet Count 266 10^3/cmm (130-400); Red Blood Count 3.34 10^6/uL (4.1-5.3); White Blood Count 11.1 10^3/uL (4.0-10.0)
--- NOTE | 2021-01-28 05:00 | XRR_ITS ---
PROCEDURE INFORMATION: Exam: XR Chest Exam date and time: 01/28/2021 5:00 AM Age: 65 years old Clinical indication: Condition or disease; Lung condition and disease; Pneumonia; Patient HX: SOB, coughing x 4-5 weeks; Additional info: Pna TECHNIQUE: Imaging protocol: XR of the chest. Views: 1 view. COMPARISON: CR XR chest 1V portable [id number] 01/25/2021 10:09 AM FINDINGS: Lungs: Mildly increased lung markings, which in the setting of cardiomegaly suggestive of mild pulmonary congestion. Bibasilar atelectasis. Pneumonia should be excluded clinically. Pleural spaces: Unremarkable. No pleural effusion. No pneumothorax. Heart/Mediastinum: Stable cardiomediastinal silhouette. Bones/joints: Unremarkable. XR/XR chest 1V portable [id number] IMPRESSION: Imaging findings suggestive of mild pulmonary congestion. Pneumonia should be excluded clinically.
[2021-01-28 05:15] LABS: Alanine Aminotransferase 14 U/L (0-41); Albumin Level 3.4 g/dL (3.5-5.2); Alkaline Phosphatase 72 IU/L (40-130); Anion Gap 16.2 (5-19); Aspartate Amino Transferase 15 U/L (0-40); Blood Urea Nitrogen 24 mg/dL (8-23); Calcium 8.7 mg/dL (8.5-10.5); Carbon Dioxide 25 mmol/L (22-29); Chloride 102 mmol/L (98-107); Globulin 2.9 g/dL (1.3-4.6); Glomerular Filtration Rate 61.1 mL/min (90-130); Glucose 77 mg/dL (65-115); Osmolality Calculated 291 mOsm/kg (285-295); Potassium 4.2 mmol/L (3.5-5.1); Sodium 139 mmol/L (136-145); Total Bilirubin 0.5 mg/dL (0.15-1.2); Total Protein 6.3 g/dL (6.6-8.7)
[2021-01-28] MEDS: HYDROcodone-acetaminophen 5-325 mg Tablet 1 TAB PO ×2 (05:41→10:01)
--- NOTE | 2021-01-28 06:47 | PC.NURSE ---
Shift Note Frequent safety and comfort rounds continue. Orders and/or nursing care completed as indicated. Patient monitored for response to intervention and treatment. Education provided include hydrocodone and oxygen needs. Patient verbalized complete understanding. Patient reports feeling much better this morning stating, I am ready to go home today. Patient rested comfortably. Does continue to c/o chronic hip pain which medication was provided for as ordered. Patient denies other needs presently. No distress observed. Will continue to monitor.
[2021-01-28] MEDS: aspirin 81 mg Chew Tablet PO (08:50)
[2021-01-28] MEDS: bumetanide 1 mg Tablet PO (08:50)
[2021-01-28] MEDS: cefTRIAXone 1,000 MG in sodium chloride 0.9% (plus) 50 ML 100 MG IV (08:50)
[2021-01-28] MEDS: predniSONE 5 mg Tablet PO (08:51)
[2021-01-28] MEDS: apixaban 5 mg Tablet PO (08:51)
[2021-01-28] MEDS: carvedilol 25 mg Tablet PO (08:51)
[2021-01-28] MEDS: potassium chloride oral liq 20 mEq/15 mL UDC PO (08:51)
--- NOTE | 2021-01-28 09:34 | PC.NURSE ---
RT Shift Note Frequent safety and respiratory rounds continue. Orders completed as indicated. Patient monitored pre and post treatments throughout shift. Patient [Did] tolerated treatments appropriately. Condition [DidNotChange]. Patient and/or auto claim representative educated on respiratory treatment and medications. Patient and/or auto claim representative [stated understanding]. Will continue to monitor patient progress. O2 saturation, activity tolerance. Patient expressed wish to go home today.
--- NOTE | 2021-01-28 10:50 | P.DS_ITS ---
Discharge Providers Date of Admission: 01/25/21 14:47 Date of Discharge: January 28, 2021 Attending Provider at Admission: Reid Cline MD Attending Provider at Discharge: Reid Cline MD Primary Care Provider: Andrew Webster MD Diagnoses at Discharge Discharge Diagnosis (1) Decompensated heart failure: Status: Resolved (2) Pneumonia: Status: Resolved (3) Atrial fibrillation: Status: Acute (4) Acute kidney injury superimposed on CKD: Status: Acute (5) Leukocytosis: Status: Acute (6) Abdominal aortic aneurysm: Status: Acute (7) Essential hypertension: Status: Acute (8) Rheumatoid arthritis: Status: Acute Reason for Visit Reason for Visit: Sob, upset stomach, N, coughing Hospital Course Hospital Course 65 year old male with past medical history of hypertension , rheumatoid arthritis, came in with chief complaint of worsening shortness of breath as well as cough, he is experiencing worsening shortness of breath for the last couple of months, but in the last 3 days shortness of breath has been worst, along with shortness of breath he is also complaining of none productive cough, shortness of breath is worse with minimal exertion, denies any PND and orthopnea, denies any chest pain, fever, sick contact, abdominal pain , nausea , vomiting. Upon arrival in the ER he was worked up for above mentioned complaint. Imaging studies: XR chest : Moderate peripheral bilateral pulmonary opacities. CT abdomen and pelvis: Infrarenal abdominal aortic aneurysm measuring 5.2 x 6.3 x 7.1 cm with surrounding mural thrombus. Patchy infiltrates in the lung bases. EKG: A. fib, with rate of 100 Pertinent labs: WBC:14.1, H&H:12/38.8, platelet count:280, serum sodium:140, serum potassium:3.9, BUN / serum creatinine: 25/1.3 Troponin T baseline: 74, 2-hour troponin T: 70.31, 2-hour delta:-3.69, proBNP:3309 Urinalysis: Clean Rapid Covid antigen negative, Covid PCR :negative.Patient was admitted for management acute hypoxic respiratory failure secondary to pneumonia as well as decompensated heart failure with preserved ejection fraction. As well as new onset A. fib with RVR. For his pneumonia he was kept on ceftriaxone and azithromycin.Blood culture:NTD , Procalcitonin:0.20 , Urine Legionella antigen: Negative , Bacterial antigen panel: Negative. At the time of discharge he was afebrile, coughing was improved, shortness of breath has improved. He was discharged on Augmentin p.o. twice daily for additional 7 days. For Decompensated heart failure with preservation fraction: 2D Echo: Normal left ventricular cavity size. Normal left ventricular systolic function. Left ventricular ejection fraction is estimated at 55 -60 %.Although no diagnostic regional wall motion abnormality could be in fact, this possibility cannot be completely excluded based on the study.No gross valvular abnormality.He was kept on Bumex 1 mg IV daily , with good urine output, patient was euvolemic at discharge, shortness of breath had improved a lot.He was discharged on Bumex p.o. 1 mg daily. New onset atrial fibrillation: Chads vas score was 2: He was continued on carvedilol 25 mg q12 h daily, he was started on Eliquis 5 mg p.o. every 12 hours daily. TSH was normal.Abdominal aortic aneurysm: 6.6 centimeters non leaking abdominal aneurysm. Outpatient [facility] follow-up. For his RA rheumatoid arthritis: Continued on on Prednisone 5 mg po BID. patient responded well to the above medical management and was discharged in stable condition to home.He will continue to follow his primary care physician as well as cardiothoracic surgeon as an outpatient. Physical Exam Const: COMMON NORMALS: patient oriented x3 HENMT: COMMON NORMALS: normocephalic and atraumatic HEAD & SCALP: normocephalic and atraumatic Chest: CHEST: Yes Symmetrical chest wall rise Resp: OTHER: Decreased air entry bilaterally Cardio: COMMON NORMALS: regular rate, regular rhythm, S1 normal heart sound present, S2 normal heart sound present, No gallops present (Cardio), No murmurs present (Cardio), No rub (Cardio) and Peripheral pulses 2+ throughout RATE: regular rate RHYTHM: regular rhythm HEART SOUNDS: S1 normal heart sound present and S2 normal heart sound present PERIPHERAL PULSES: Peripheral pulses 2+ throughout GI: COMMON NORMALS: Normal to inspection, nondistended, normoactive bowel sounds present, Soft to palpation, non-tender, No hepatosplenomegaly present and no masses AUSCULTATION: Yes normoactive bowel sounds PALPATION: Yes Soft to palpation and Yes No hepatosplenomegaly present RECTAL EXAM: Yes deferred Extremity: COMMON NORMALS: no clubbing, cyanosis or edema NARRATIVE EX TREMITY EXAM: Neuro: COMMON NORMALS: patient oriented x3 Urinary Catheter Management^: Argueta: Cath Placed During This Visit: yes Reason for Continuing Indwelling Catheter: Accurate Measurement of Urinary Output in Critically Ill Patients Urinary Catheter Date of Insertion: 01/25/21 Urinary Catheter Time of Insertion: 12:10 Discharge Data Data Completed and Pending: Completed Studies During Hospitalization Category Date Time Status CT abdomen pelvis w con* [id number] Stat Cat Scan 01/25/21 12:00 Completed XR chest 1V janae ble [id number] Routine Exams 01/28/21 05:00 Completed XR chest 1V janae ble [id number] Stat Exams 01/25/21 10:11 Completed CV. echo complete * [id number] Routine Ultrasound 01/26/21 09:16 Completed Pending at discharge Category Date Time Status Blood Culture Rou kirstin Lab 01/25/21 16:00 Results Enteric Bacterial Panel by PCR Rout ine Lab 01/27/21 12:01 Received Enteric Parasite Panel by PCR Routi ne Lab 01/27/21 12:01 Received Sputum Culture Ro utine Lab 01/27/21 08:50 Uncollected Labs from last 24 hours 01/28/21 01/28/21 03:28 03:28 WBC 11.1 H RBC 3.34 L Hgb 10.8 L Hct 35.6 L MCV 106.6 H MCH 32.3 MCHC 30.3 RDW 15.0 Plt Count 266 MPV 11.1 H Neut % (Auto) 66.6 Lymph % (Auto) 17.0 Routt % (Auto) 11.5 Eos % (Auto) 1.1 Baso % (Auto) 0.7 Neut # (Auto) 7.39 Lymph # (Auto) 1.9 Routt # (Auto) 1.3 H Eos # (Auto) 0.1 Baso # (Auto) 0.1 Nucleated RBC % (a uto) 0 Nucleated RBCs # 0.0 Sodium 139 Potassium 4.2 Chloride 102 Carbon Dioxide 25 Anion Gap 16.2 BUN 24 H Creatinine 1.2 GFR Calculation 61.1 L Glucose 77 Calculated Osmolal ity 291 Calcium 8.7 Total Bilirubin 0.5 AST 15 ALT 14 Alkaline Phosphata se 72 Total Protein 6.3 L Albumin 3.4 L Globulin 2.9 Vitals: Last Vital Signs Temp 97.8 F 01/28/21 07:02 Pulse 94 01/28/21 08:51 Resp 18 01/28/21 08:43 BP 117/95 01/28/21 07:02 Pulse Ox 95 01/28/21 08:43 Discharge Plan Discharge Patient Disposition: Home Condition: Stable Prescriptions: New Eliquis 5 mg tablet 5 mg PO BID Qty: 60 RF: 3 Augmentin 500-125 mg tablet 1 tab PO BID Qty: 14 RF: 0 Mucinex 600 mg tablet extended release 12hr 600 mg PO BID PRN (Reason: cough) Qty: 14 RF: 0 Continued aspirin [Aspirin Childrens] 81 mg tablet,chewable 81 mg PO DAILY RF: 0 Trelegy Ellipta 100-62.5-25 mcg blister with device 1 inh inhalation DAILY RF: 0 prednisone 5 mg tablet 5 mg PO BID RF: 0 spironolactone [Aldactone] 100 mg tablet 100 mg PO DAILY Qty: 90 RF: 3 carvedilol [Coreg] 25 mg tablet 25 mg PO BID Qty: 180 RF: 3 bumetanide 1 mg tablet 1 mg PO DAILY Qty: 90 RF: 3 oxycodone-acetaminophen 10-325 mg tablet 1 tab PO Q4H PRN (Reason: Pain) RF: 0 Held losartan 50 mg tablet 50 mg PO DAILY RF: 0 Hold Instructions: Resume on 02/04/21. Discharge Orders: Discharge Order (Routine); Ordered 01/28/21 Ordered By: Reid Cline Other Ambulatory Orders: DME: Oxygen (Order) Location: None Selected Ordered By: Reid Cline Sleep Study/Titration (Routine) Timeframe: 1 Week Location: None Selected Ordered By: Reid Cline Referrals: Andrew Webster MD [Primary Care Provider] - 02/11/21 1:00 pm (ON THE SAME DAY YOUR APPOINTMENT WITH DR. SMITH: You have a hospital followup with Dr. Delgado at his office on February 11 at 1:00) Garland Smith MD [Physician] - 02/11/21 11:15 am (You have a new patient exam at [facility] with Dr. Smith on February 11 at 11:15) Discharge Diet: Cardiac Discharge Activity: Resume usual activity Patient Instructions: Guaifenesin (By mouth), Amoxicillin/Clavulanate Potassium (By mouth), Apixaban (By mouth), Heart Failure (DC), Opioid Safety Activity Restrictions/Additional Instructions: [facility] [facility] Centralized Scheduling Department will be calling with the details of your sleep study. If you do not hear from them by tomorrow afternoon, please give them a call at Discharge Attestations Time Spent in Discharge Care*: less than 30 min Specific Discharge Activities: educating patient, educating and/or supporting family/caregiver, discussing with pcp/other providers, documenting/other paperwork and evaluating patient/reviewing data Status at Discharge: Cognitive status at discharge: cognitively intact , Behavioral status at discharge: cooperative , Functional status at discharge: independent ambulation Overall status at discharge: patient is back to baseline Quality Metrics Clinical Quality Measures During this hospital stay, did patient experience: None Coding Level of Care Code Acute Chg FW DC note Diagnoses Decompensated heart failure I50.9 Pneumonia J18.9 Atrial fibrillation I48.91 Acute kidney injury superimposed on CKD N17.9; N18.9 Leukocytosis D72.829 Abdominal aortic aneurysm I71.4 Essential hypertension I10 Rheumatoid arthritis M06.9
--- NOTE | 2021-01-28 11:14 | PC.NURSE ---
Call placed to patient's regarding patient discharging today. Also discussed Lit will need oxygen at home and the D/C train planner will arrange this for delivery to hospital.
--- NOTE | 2021-01-28 13:20 | PC.NURSE ---
Discharge Note Patient discharged to Home via [wheelchair] accompanied by [his , Savannah]. Discharge instructions reviewed with patient and/or business services sales representative. Mobile pharmacy medications and/or prescriptions provided. Belongings/home medications returned. Yes
== END 2021-01-28 13:20 | disposition home or self-care (01) | DRG 193 ==
LOC: ER 12:12 → CSU 01-26 00:06
PROVIDERS: Internal Medicine; Admitting Provider Internal Medicine; Emergency Provider Family Medicine; PCP Internal Medicine; Visit Provider Internal Medicine
DX: J18.9 Pneumonia, unspecified organism (principal); I50.33 Acute on chronic diastolic (congestive) heart failure; J96.01 Acute respiratory failure with hypoxia; I13.0 Hypertensive heart and chronic kidney disease with heart failure and stage 1 through stage 4 chronic kidney disease, or unspecified chronic kidney disease; N17.9 Acute kidney failure, unspecified; N18.30 Chronic kidney disease, stage 3 unspecified; M06.9 Rheumatoid arthritis, unspecified; I71.4 Abdominal aortic aneurysm, without rupture; Z87.891 Personal history of nicotine dependence; I48.91 Unspecified atrial fibrillation; Z79.52 Long term (current) use of systemic steroids; Z79.82 Long term (current) use of aspirin; Z79.891 Long term (current) use of opiate analgesic
CPT/HCPCS: 36415; 36600; 51702; 71045; 74177; 80051; 80053; 81003; 82330; 82550; 82805; 83036; 83605; 83735; 83880; 84100; 84145; 84443; 84484; 85025; 85378; 86403; 87040; 87426; 87449; 87493; 87506; 87635; 93005; 93306; 94640; 94660; 96365; 96367; 96372; 96375; 99285; J0456; J0696; J1650; J1940; J2060; J2270; J3480; J3490; J7050; J7512; Q9967

== ENCOUNTER 2023-10-24 07:48 | Outpatient (CLI) | payer MEDICARE, SELFPAY ==
--- NOTE | 2023-10-24 08:00 | CT_ITS ---
WS: [id number] CT LUMBAR SPINE, noncontrast. HISTORY: M48.03 - Spinal stenosis, cervicothoracic region TECHNIQUE: Contiguous 2.0 mm axial imaging are performed. Sagittal and coronal reformats are submitte d and reviewed. All CT scans at [facility] use at least one of these dose optimization techni ques: automated exposure control; mA and/or kV adjustment per patient size (includes targeted exams w here dose is matched to clinical indication); or iterative reconstruction. IV contrast: None DLP: 655.70 mGy.cm COMPARISON: None available. Straightening and RIGHT curvature lumbar spine. Severe disc space narrowing is asymmetric at L3-4. Mi ld anterior wedging of T12. No acute fracture identified. L1-2: Asymmetric annular disc bulging. Broad-based LEFT paracentral and foraminal disc protrusion. Ef facement of the CSF and ventral thecal sac. There is disc contacting the traversing LEFT L2 nerve christopher t. Mild central and LEFT subarticular recess stenosis. L2-3: Diffuse asymmetric disc bulging contacting the subarticular recesses. Mild central, bilateral s ubarticular recess and foraminal stenosis. L3-4: Marked osteophytic ridging and facet joint arthritis. Disc and osteophyte contacts the ventral thecal sac. Osteophytes extend into the foramina. Moderate to severe central with bilateral subarticu lar recess and foraminal stenosis. L4-5: Diffuse osteophytic ridging with annular disc bulging. Disc extends into the subarticular reces ses. Severe central, bilateral subarticular recess and foraminal stenosis. There is disc contacting t he L4 and L5 nerve roots. L5-S1: Broad-based disc bulging. No high-grade stenosis. Mild foraminal stenosis. Endovascular stent grafting abdominal aortic aneurysm beginning at the level of the renal arteries. B iiliac extension of the graft. No adjacent aortic hematoma. Bilateral renal calcifications. CT/CT lumbar spine wo con* [id number] IMPRESSION: 1. Advanced degenerative spondylitic changes and scoliosis within the lumbar s pine. 2. No acute compression fracture. 3. Remote anterior wedging of T12. 4. L1-2: Broad-based LEFT paracentral foraminal disc protrusion. Disc contacts the LEFT traversing L2 nerve root. Mild central and LEFT subarticular recess s tenosis. 5. L2-3: Mild central, bilateral subarticular recess and foraminal stenosis. 6. L3-4: Moderate to severe central with bilateral subarticular recess and for aminal stenosis. 7. L4-5: Severe central, bilateral subarticular recess and foraminal stenosis. Disc contacts the L3 and L4 nerve roots bilaterally. 8. L5-S1: Mild foraminal stenosis.
--- NOTE | 2023-10-24 09:00 | CT_ITS ---
WS: [id number] CT CERVICAL SPINE HISTORY: M48.03 - Spinal stenosis, cervicothoracic region TECHNIQUE: Contiguous 2.0 mm axial imaging performed through the entire cervical spine. Sagittal and coronal reformats also performed. All CT scans at [facility] use at least one of these dose o ptimization techniques: automated exposure control; mA and/or kV adjustment per patient size (include s targeted exams where dose is matched to clinical indication); or iterative reconstruction. DLP: 147.17 mGy.cm COMPARISON: None available. Mild degenerative curvature and rotary scoliosis. Asymmetric disc space narrowing. 3 mm anterolisthes is of C3. Disc spaces are all narrowed. Facet joints are aligned. C2-C3: Mild annular disc bulging. C3-C4: Osteophytic ridging and a central disc protrusion. Moderate central and LEFT foraminal stenosi s. Severe RIGHT foraminal stenosis due to osteophyte disease. C4-C5: Osteophytic ridging with a shallow central disc protrusion. Mild central with bilateral forami nal stenosis. C5-C6: Osteophytic ridging encroaching upon the ventral thecal sac. Severe bilateral foraminal stenos is and moderate central stenosis. C6-C7: Broad-based disc bulging centrally. Moderate central and bilateral foraminal stenosis. C7-T1: Bilateral foraminal stenosis is mild. Soft tissues are normal. Lung apices are clear. CT/CT cervical spin wo con* [id number] IMPRESSION: 1. Moderate to advanced degenerative changes in the cervical spine. No acute f ractures. Multilevel stenoses due to combination of disc, facet and osteophytic ridging. 2. C3-4: Central disc protrusion resulting in moderate central and LEFT forami nal stenosis. Severe RIGHT foraminal stenosis due to osteophyte disease. 3. C4-5: Mild central and bilateral foraminal stenosis. 4. C5-6: Severe bilateral foraminal stenosis and moderate central stenosis. 5. C6-7: Moderate central and bilateral foraminal stenosis.
== END 2023-10-24 07:49 | disposition home or self-care (01) ==
PROVIDERS: PCP Nurse Practitioner; Visit Provider Nurse Practitioner Family
DX: M48.03 Spinal stenosis, cervicothoracic region (principal); M50.11 Cervical disc disorder with radiculopathy, high cervical region; M48.061 Spinal stenosis, lumbar region without neurogenic claudication; M48.07 Spinal stenosis, lumbosacral region
CPT/HCPCS: 72125; 72131

== ENCOUNTER 2023-11-30 06:00 | Outpatient (RCR) | payer MEDICARE, SELFPAY | END 2023-12-24 23:59 | disposition home or self-care (01) | LOC: WPT 06:00 | PROVIDERS: Visit Provider Physician Assistant | DX: R29.818 Other symptoms and signs involving the nervous system (principal); R29.898 Other symptoms and signs involving the musculoskeletal system; Z98.1 Arthrodesis status | CPT/HCPCS: 97110; 97112; 97116; 97140; 97163; 97530 ==

== ENCOUNTER 2023-12-07 06:00 | Outpatient (RCR) | payer MEDICARE, SELFPAY | END 2023-12-24 23:59 | disposition home or self-care (01) | LOC: WOT 06:00 | PROVIDERS: Visit Provider Nurse Practitioner Family | DX: R29.90 Unspecified symptoms and signs involving the nervous system (principal) | CPT/HCPCS: 97110; 97166; 97530; 97535 ==

== ENCOUNTER 2023-12-25 06:00 | Outpatient (RCR) | payer MEDICARE, SELFPAY | END 2024-01-24 23:59 | disposition home or self-care (01) | LOC: WPT 06:00 | PROVIDERS: Visit Provider Physician Assistant | DX: Z98.1 Arthrodesis status (principal); G95.9 Disease of spinal cord, unspecified | CPT/HCPCS: 97110; 97112; 97116; 97530 ==

== ENCOUNTER 2023-12-25 06:00 | Outpatient (RCR) | payer MEDICARE, SELFPAY | END 2024-01-24 23:59 | disposition home or self-care (01) | LOC: WOT 06:00 | PROVIDERS: Visit Provider Nurse Practitioner Family | DX: R29.818 Other symptoms and signs involving the nervous system (principal) | CPT/HCPCS: 97110; 97530 ==

== ENCOUNTER 2024-01-25 06:00 | Outpatient (RCR) | payer MEDICARE, SELFPAY | END 2024-02-24 23:59 | disposition home or self-care (01) | LOC: WPT 06:00 | PROVIDERS: PCP Nurse Practitioner Family; Visit Provider Physician Assistant | DX: Z98.1 Arthrodesis status (principal); G95.9 Disease of spinal cord, unspecified | CPT/HCPCS: 97110; 97112; 97530 ==

== ENCOUNTER 2024-02-25 06:00 | Outpatient (RCR) | payer MEDICARE, SELFPAY | END 2024-03-25 23:59 | disposition home or self-care (01) | LOC: WPT 06:00 | PROVIDERS: PCP Nurse Practitioner Family; Visit Provider Physician Assistant | DX: Z47.89 Encounter for other orthopedic aftercare (principal) | CPT/HCPCS: 97110; 97112; 97530 ==

== ENCOUNTER → 2024-03-14 16:32 | Outpatient (BNVA) | payer MEDICARE, SELFPAY | PROVIDERS: PCP Nurse Practitioner Family; Visit Provider Nurse Practitioner Family | DX: I10 Essential (primary) hypertension (principal); R60.9 Edema, unspecified; R06.02 Shortness of breath | CPT/HCPCS: 80053; 83880; 85025 ==

== ENCOUNTER → 2024-03-19 12:39 | Outpatient (BNVA) | payer MEDICARE, SELFPAY | PROVIDERS: PCP Nurse Practitioner Family; Visit Provider Nurse Practitioner Family | DX: N18.9 Chronic kidney disease, unspecified (principal); I10 Essential (primary) hypertension; I73.9 Peripheral vascular disease, unspecified; E55.9 Vitamin D deficiency, unspecified | CPT/HCPCS: 80053; 80061; 81003; 82570; 84156; 84443 ==

== ENCOUNTER → 2024-04-08 12:15 | Outpatient (BNVA) | payer MEDICARE, SELFPAY | PROVIDERS: PCP Nurse Practitioner Family; Visit Provider Nurse Practitioner Family | DX: N18.9 Chronic kidney disease, unspecified (principal); Z79.899 Other long term (current) drug therapy | CPT/HCPCS: 80053; 83036; 85007; 85025 ==

== ENCOUNTER → 2024-08-06 10:23 | Outpatient (BNVA) | payer MEDICARE, SELFPAY | PROVIDERS: PCP Nurse Practitioner Family; Visit Provider Nurse Practitioner Family | DX: K52.9 Noninfective gastroenteritis and colitis, unspecified (principal) | CPT/HCPCS: 80048; 83735; 85025 ==

== ENCOUNTER → 2024-09-25 11:52 | Outpatient (BNVA) | payer MEDICARE, SELFPAY | PROVIDERS: PCP Nurse Practitioner Family; Visit Provider Nurse Practitioner Family | DX: N18.9 Chronic kidney disease, unspecified (principal) | CPT/HCPCS: 80048 ==

== ENCOUNTER → 2024-10-18 10:54 | Outpatient (BNVA) | payer MEDICARE, SELFPAY | PROVIDERS: PCP Nurse Practitioner Family; Visit Provider Nurse Practitioner Family | DX: N18.9 Chronic kidney disease, unspecified (principal) | CPT/HCPCS: 80048 ==

== ENCOUNTER → 2024-11-14 09:51 | Outpatient (BNVA) | payer MEDICARE, SELFPAY | PROVIDERS: PCP Nurse Practitioner Family; Visit Provider Nurse Practitioner Family | DX: N18.9 Chronic kidney disease, unspecified (principal) | CPT/HCPCS: 80069 ==

== ENCOUNTER 2024-11-20 14:24 | Outpatient (CLI) | payer MEDICARE, SELFPAY ==
--- NOTE | 2024-11-20 14:32 | XR_ITS ---
WS: [id number] PA and lateral chest, 11/20/2024 Clinical Data: I10 - Essential (primary) hypertension Comparison: Portable chest, 01/28/2021 Findings: No nodules, masses or effusions are seen. The heart is normal. The aortic arch shows calcification and marked tortuosity. The diaphragms are flattened. The pulmonary vascularity is not increased. No pneumothorax is seen. There are old right seventh and eighth rib fractures. There is a posterior cervical thoracic fusion. XR/XR chest 2V* [id number] Impression: Atherosclerosis and hyperinflation.
== END 2024-11-20 14:25 | disposition home or self-care (01) ==
LOC: RAD 14:27
PROVIDERS: PCP Nurse Practitioner Family; Visit Provider Family Medicine
DX: I10 Essential (primary) hypertension (principal); I48.20 Chronic atrial fibrillation, unspecified; I70.0 Atherosclerosis of aorta; R91.8 Other nonspecific abnormal finding of lung field; Z87.81 Personal history of (healed) traumatic fracture; M43.22 Fusion of spine, cervical region; M43.24 Fusion of spine, thoracic region
CPT/HCPCS: 71046; 80053; 83880; 85007; 85025

== ENCOUNTER → 2025-01-01 09:42 | Outpatient (BNVA) | payer MEDICARE, SELFPAY | PROVIDERS: PCP Family Medicine; Visit Provider Family Medicine | DX: I48.20 Chronic atrial fibrillation, unspecified (principal); N18.31 Chronic kidney disease, stage 3a | CPT/HCPCS: 80053; 85007; 85025 ==

== ENCOUNTER → 2025-01-27 08:10 | Outpatient (BNVA) | payer MEDICARE, SELFPAY | PROVIDERS: PCP Family Medicine; Visit Provider Family Medicine | DX: N18.31 Chronic kidney disease, stage 3a (principal); E55.9 Vitamin D deficiency, unspecified; I10 Essential (primary) hypertension; I48.20 Chronic atrial fibrillation, unspecified | CPT/HCPCS: 80069; 81003; 82043; 82306; 82310; 82728; 83550; 83970; 85025 ==

== ENCOUNTER → 2025-02-26 09:35 | Outpatient (BNVA) | payer MEDICARE, SELFPAY | PROVIDERS: PCP Family Medicine; Visit Provider Family Medicine | DX: N18.31 Chronic kidney disease, stage 3a (principal) | CPT/HCPCS: 80053; 85025 ==

== ENCOUNTER → 2025-03-18 08:09 | Outpatient (BNVA) | payer MEDICARE, SELFPAY | PROVIDERS: PCP Family Medicine; Visit Provider Nurse Practitioner Family | DX: D59.30 Hemolytic-uremic syndrome, unspecified (principal); I50.22 Chronic systolic (congestive) heart failure; E55.9 Vitamin D deficiency, unspecified; I48.20 Chronic atrial fibrillation, unspecified; M54.9 Dorsalgia, unspecified; G89.29 Other chronic pain; D50.1 Sideropenic dysphagia | CPT/HCPCS: 80069; 81003; 82306; 82310; 82570; 82728; 83550; 83970; 84156; 85025; 87086 ==

== ENCOUNTER → 2025-05-20 11:34 | Outpatient (BNVA) | payer MEDICARE, SELFPAY | PROVIDERS: PCP Family Medicine; Visit Provider Nurse Practitioner Family | DX: I10 Essential (primary) hypertension (principal) | CPT/HCPCS: 80048; 85025 ==

== ENCOUNTER → 2025-05-26 09:31 | Outpatient (BNVA) | payer MEDICARE, SELFPAY | PROVIDERS: PCP Nurse Practitioner Family; Visit Provider Nurse Practitioner Family | DX: K92.2 Gastrointestinal hemorrhage, unspecified (principal) | CPT/HCPCS: 85025 ==

== ENCOUNTER → 2025-06-16 09:15 | Outpatient (BNVA) | payer MEDICARE, SELFPAY | PROVIDERS: PCP Nurse Practitioner Family; Visit Provider Nurse Practitioner Family | DX: K92.2 Gastrointestinal hemorrhage, unspecified (principal); I48.20 Chronic atrial fibrillation, unspecified; D64.9 Anemia, unspecified | CPT/HCPCS: 82728; 83550; 84466; 85025 ==